=== PATIENT | female | born 1945 | race Caucasian/White ===

== ENCOUNTER 2017-04-08 03:49 | Observation (INO) | payer MEDICARE, BC, OTHER ==
[~2017-04-08] VITALS: Ht 154.9 cm; Wt 75.0 kg
[2017-04-08] VITALS (9 sets, daily range): BP systolic 132–168; BP diastolic 75–88; PULSE 68–80; RESP 16–20; TEMP 96.9–98.3; O2SAT 96–100
[~2017-04-08 03:49] MED LIST: FIORIC PO; IMDU60TA PO; LISI-360 PO
[2017-04-08] MEDS: NITROGLYCERIN 0.4 MG SL 25 TABS/BTL SL SCH ×3 (04:10→04:25)
--- NOTE | 2017-04-08 04:11 | PD ---
HPI Chief Complaint: chest pain Time Seen by Provider: 04:04 Travel History International Travel<30 days: No Contact w/Intl Traveler<30days: No Traveled to known affect area: No History of Present Illness HPI 71-year-old female presents to the emergency department for complaint of one day of retrosternal chest pain radiating to her neck and jaw. Patient's had associated nausea. Patient denies any vomiting abdominal pain or diarrhea. Patient reports mild shortness of breath. Patient's had episodes of feeling flushed with some mild diaphoresis and did not check herself for fever. Patient has chronic sinus drainage. Patient has had scant nonproductive cough. Patient does not report any urinary symptoms. Patient does take medication for blood pressure including prescription isosorbide for blood pressure management. Patient's and the care of Dr. Vásquez. Patient does not see a organizational psychologist. No prior history of CAD, angina, or LA. Patient takes no blood thinning agent. Patient is status post cholecystectomy. [facility] Past Medical History Narrative Medical Asthma migraine anxiety depression hypertension bunionectomy cholecystectomy tonsillectomy; no tobacco use; nursing notes reviewed Arthritis: No Asthma: Yes Autoimmune Disease: No Blood Disorders: No Anxiety: Yes Depression: Yes Heart Rhythm Problems: No Cancer: No Cardiac Catheterization: No Cardiovascular Problems: No High Cholesterol: No Chemotherapy: No Congestive Heart Failure: No COPD: No Cerebrovascular Accident: No Diabetes: No Diminished Hearing: No Gastrointestinal Disorders: Yes GERD: Yes Glaucoma: No Hepatitis: No Hypertension: Yes Kidney Stones: No Musculoskeletal: No Neurologic: No Reproductive: No Respiratory: No Myocardial Infarction: No Radiation Therapy: No Renal Failure: No Seizures: No Sleep Apnea: No Thyroid Disease: No Ulcer: No Menopausal: Yes Past Surgical History AICD: No Cholecystectomy: Yes Coronary Artery Bypass Graft: No Eye Surgery: Yes Genitourinary Surgery: No Pacemaker: No Tonsillectomy: Yes Other Surgery: Yes (bunionecotomy 1989) Social History Alcohol Use: No Tobacco Use: No Substance Use: No Allergies-Medications (Allergen,Severity, Reaction): Coded Allergies: Clonidine (Verified Allergy, Severe, 03/06/14) Penicillin (Verified Allergy, Unknown, RASH, 03/06/14) PT STATES POSSIBLE RASH ON CHEST 40 YEARS AGO Reported Meds & Prescriptions Reported Meds & Active Scripts Active Reported Isosorbide Mononitrate ER (Isosorbide Mononitrate) 120 Mg Baljeet 120 Mg PO DAILY Cozaar (Losartan Potassium) 50 Mg Tab 50 Mg PO DAILY Review of Systems Except as stated in HPI: all other systems reviewed are Neg General / Constitutional: No: Fever, Chills HENT: Positive: Rhinitis (chronic seasonal), No: Congestion Cardiovascular: Positive: Chest Pain or Discomfort, Diaphoresis (occasional), No: Palpitations, Edema Respiratory: Positive: Cough (mild nonproductive), No: Shortness of Breath, Wheezing Gastrointestinal: Positive: Nausea, No: Vomiting, Diarrhea, Abdominal Pain Genitourinary: No: Decreased Urinary Output, Flank Pain Musculoskeletal: No: Myalgias, Arthralgias, Edema Skin: No Rash Neurologic: No: Weakness Psychiatric: No: Anxiety Hematologic/Lymphatic: No: Lymph Node Enlargement Physical Exam Narrative GENERAL: Well-developed well-nourished female in no acute distress no respiratory distress SKIN: Warm and dry. HEAD: Normocephalic. EYES: No scleral icterus. No injection or drainage. NECK: Supple, trachea midline. No JVD or lymphadenopathy. CARDIOVASCULAR: Regular rate and rhythm without murmurs, gallops, or rubs. RESPIRATORY: Breath sounds equal bilaterally. No accessory muscle use. GASTROINTESTINAL: Abdomen soft, non-tender, nondistended. MUSCULOSKELETAL: No cyanosis, or edema. Radial and dorsalis pedis pulses 2+ to palpation bilaterally BACK: Nontender without obvious deformity. No CVA tenderness. Data Data Last Documented VS Vital Signs Date Time Temp Pulse Resp B/P Pulse Ox O2 Delivery O2 Flow Rate FiO2 04/08/17 04:37 73 20 132/75 97 04/08/17 04:31 Nasal Cannula 2 04/08/17 04:29 98.3 Orders Electrocardiogram (04/08/17 04:04) Ckmb (Isoenzyme) Profile (04/08/17 04:04) Complete Blood Count With Diff (04/08/17 04:04) Comprehensive Metabolic Panel (04/08/17 04:04) Magnesium (Mg) (04/08/17 04:04) Prothrombin Time / Inr (Pt) (04/08/17 04:04) Act Partial Throm Time (Ptt) (04/08/17 04:04) Troponin I (04/08/17 04:04) Lipase (04/08/17 04:04) Chest, Single Ap (04/08/17 04:04) Ecg Monitoring (04/08/17 04:04) Bilateral Bp Monitoring (04/08/17 04:04) Iv Access Insert/Monitor (04/08/17 04:04) Oximetry (04/08/17 04:04) Oxygen Administration (04/08/17 04:04) Aspirin Chew (Aspirin Chew) (04/08/17 04:15) Sodium Chloride 0.9% Flush (Ns Flush) (04/08/17 04:15) Nitroglycerin Sl (Nitrostat Sl) (04/08/17 04:15) Labs Laboratory Tests Test 04/08/17 04:05 White Blood Count 7.4 TH/MM3 Red Blood Count 4.27 MIL/MM3 Hemoglobin 13.2 GM/DL Hematocrit 39.0 % Mean Corpuscular Volume 91.3 FL Mean Corpuscular Hemoglobin 31.0 PG Mean Corpuscular Hemoglobin 34.0 % Concent Red Cell Distribution Width 11.9 % Platelet Count 251 TH/MM3 Mean Platelet Volume 7.8 FL Neutrophils (%) (Auto) 65.3 % Lymphocytes (%) (Auto) 23.1 % Monocytes (%) (Auto) 6.9 % Eosinophils (%) (Auto) 4.4 % Basophils (%) (Auto) 0.3 % Neutrophils # (Auto) 4.9 TH/MM3 Lymphocytes # (Auto) 1.7 TH/MM3 Monocytes # (Auto) 0.5 TH/MM3 Eosinophils # (Auto) 0.3 TH/MM3 Basophils # (Auto) 0.0 TH/MM3 CBC Comment DIFF FINAL Differential Comment Prothrombin Time 10.5 SEC Prothromb Time International 1.0 RATIO Ratio Activated Partial 27.5 SEC Thromboplast Time Sodium Level 141 MEQ/L Potassium Level 3.7 MEQ/L Chloride Level 106 MEQ/L Carbon Dioxide Level 26.4 MEQ/L Anion Gap 9 MEQ/L Blood Urea Nitrogen 11 MG/DL Creatinine 0.77 MG/DL Estimat Glomerular Filtration 74 ML/MIN Rate Random Glucose 114 MG/DL Calcium Level 8.8 MG/DL Magnesium Level 2.3 MG/DL Total Bilirubin 0.4 MG/DL Aspartate Amino Transf 15 U/L (AST/SGOT) Alanine Aminotransferase 26 U/L (ALT/SGPT) Alkaline Phosphatase 107 U/L Total Creatine Kinase 48 U/L Troponin I LESS THAN 0.02 NG/ML Total Protein 7.0 GM/DL Albumin 3.7 GM/DL Lipase 100 U/L MDM Medical Decision Making Medical Screen Exam Complete: Yes Emergency Medical Condition: Yes Medical Record Reviewed: Yes Interpretation(s) EKG normal sinus rhythm rate [address] elevation or injury pattern Q waves inferiorly lead 3 age-indeterminate cxr: wnl FINDINGS: A single view of the chest demonstrates the lungs to be symmetrically aerated without evidence of mass, infiltrate or effusion. The cardiomediastinal contours are unremarkable. Osseous structures are intact. CONCLUSION: Unremarkable single view of the chest. Saqib Bhardwaj MD on April 08, 2017 at 4:50 Board Certified Radiologist. This report was verified electronically. CBC & BMP Diagram 04/08/17 04:05 Vital Signs Date Time Temp Pulse Resp B/P Pulse Ox O2 Delivery O2 Flow Rate FiO2 04/08/17 04:37 73 20 132/75 97 04/08/17 04:31 79 20 96 Nasal Cannula 2 04/08/17 04:29 98.3 72 20 164/82 100 04/08/17 04:25 70 20 158/88 96 156/88 04/08/17 04:25 98 Nasal Cannula 2 04/08/17 04:25 74 20 158/88 98 Nasal Cannula 2 CK 70, not elevated; troponin I less than 0.02, not elevated Coagulation studies grossly normal range Differential Diagnosis Chest pain, ACS, LA, musculoskeletal pain, esophageal spasm, choledocholithiasis , pancreatitis, gastritis; also to consider aortic dissection, aneurysm Narrative Course Patient placed on quarter doper EKG performed IV access obtained specimens collected and sent for resulting; patient ordered aspirin and sublingual nitroglycerin EKG reveals no acute ST elevation or injury pattern Patient with retrosternal chest pain that it decreases after sublingual nitroglycerin along with blood pressure management. Patient be admitted to chest pain center per protocol Diagnosis Primary Impression: Chest pain Orly So MD April 08, 2017 04:11
[2017-04-08] MEDS ORDERED: SODIUM CHLORIDE 0.9% FLUSH 10 ML FLUSH IVF PRN ×2 (04:15→05:15)
[2017-04-08] MEDS ORDERED: ASPIRIN 81 MG CHEW TAB PO ONE (04:15)
[2017-04-08 04:16] LABS: AUTOMATED NEUTROPHIL # 4.9 TH/MM3 (1.8-7.7); BASOPHIL % 0.3 % (0.0-2.0); EOSINOPHIL # 0.3 TH/MM3 (0-0.4); EOSINOPHIL % 4.4 % (0.0-4.0); HEMO FLAGS DIFF FINAL; LYMPH % 23.1 % (9.0-44.0); LYMPHOCYTE # 1.7 TH/MM3 (1.0-4.8); MEAN CELL VOLUME 91.3 FL (80.0-100.0); MONO % 6.9 % (0.0-8.0); NEUT % 65.3 % (16.0-70.0); PLATELET COUNT 251 TH/MM3 (150-450); RED BLOOD COUNT 4.27 MIL/MM3 (4.00-5.30); RED CELL DISTRIBUTION WIDTH 11.9 % (11.6-17.2); WHITE BLOOD COUNT 7.4 TH/MM3 (4.0-11.0)
[2017-04-08 04:25] LABS: CHLORIDE 106 MEQ/L (98-107); POTASSIUM 3.7 MEQ/L (3.5-5.1); SODIUM (NA) 141 MEQ/L (136-145)
[2017-04-08 04:30] LABS: ANION GAP 9 MEQ/L (5-15); APTT (PATIENT) 27.5 SEC (24.3-30.1); BICARBONATE 26.4 MEQ/L (21.0-32.0); BLOOD UREA NITROGEN 11 MG/DL (7-18); MAGNESIUM 2.3 MG/DL (1.5-2.5); PROTHROMBIN TIME - PATIENT 10.5 SEC (9.8-11.6)
[2017-04-08 04:32] LABS: ALT (GPT) 26 U/L (10-53); AST (GOT) 15 U/L (15-37)
[2017-04-08 04:33] LABS: GLOMERULAR FILTRATION RATE 74 ML/MIN (>89)
[2017-04-08 04:34] LABS: TOTAL BILIRUBIN ADULT 0.4 MG/DL (0.2-1.0)
[2017-04-08 04:35] LABS: ALKALINE PHOSPHATASE 107 U/L (45-117)
[2017-04-08 04:43] LABS: CREATINE KINASE 48 U/L (26-192)
[2017-04-08] MEDS ORDERED: ISOS120T PO (04:45)
[2017-04-08] MEDS ORDERED: COZA50TA PO (04:45)
--- NOTE | 2017-04-08 04:51 | RADHPO ---
EXAM DATE/TIME: 04/08/2017 04:15 [facility] COMPARISON: CHEST SINGLE AP, April 16, 2013, 20:31. INDICATIONS : Chest pressure, nausea for 24 hours MEDICAL HISTORY : None. SURGICAL HISTORY : None. ENCOUNTER: Initial ACUITY: 1 day PAIN SCORE: 0/10 LOCATION: Bilateral chest FINDINGS: A single view of the chest demonstrates the lungs to be symmetrically aerated without evidence of mas s, infiltrate or effusion. The cardiomediastinal contours are unremarkable. Osseous structures are intact. CONCLUSION: Unremarkable single view of the chest. Saqib Bhardwaj MD on April 08, 2017 at 4:50 Board Certified Radiologist. This report was verified electronically.
[2017-04-08] MEDS ORDERED: SODIUM CHLORIDE 0.9% FLUSH 10 ML FLUSH IV FLUSH PRN (05:00)
[2017-04-08 07:34] LABS: CREATINE KINASE 37 U/L (26-192)
--- NOTE | 2017-04-08 08:17 | HHI.HP ---
[facility] Service [facility] Primary Care Physician Osmin Vásquez M.D. Admission Diagnosis chest pain Diagnoses: (1) Chest pain Diagnosis: Principal (2) Hypertension Diagnosis: Secondary (3) GERD (gastroesophageal reflux disease) Diagnosis: Secondary Travel History International Travel<30 Days: No Contact w/Intl Traveler <30 Da: No Traveled to Known Affected Are: No History of Present Illness Written by Milton Bains, acting as scribe for Dr. Toscano on 04/08/17 at 08: 12. 71-year-old female with known history of hypertension, gastroesophageal reflux, seasonal allergies who presented to hospital because of chest discomfort, nausea, lightheadedness dizziness. Patient states that over symptoms started yesterday morning when she woke up. She indicates that she had lightheaded dizziness which she contributed it to her seasonal allergies because she also had a sinus headache. The patient started developing nausea upon waking as well. She had increased belching and flatulence. However throughout the day she started developing a heaviness in her chest which she felt as if it can be compared to having a small puppy on her chest. There was some pressure sensation radiating up into her neck. Patient indicates that when she got up and started her so she thought that she may have become diaphoretic. The pain did not worsen when she was exerting herself. She denied any shortness of breath, dyspnea. Patient indicates that the discomfort was persistent throughout the day. She laid down to go to sleep last night approximately 10 PM and the pain was not improved so she decided come to the hospital for evaluation. Patient was evaluated by emergency room physician and recommended observation chest pain center. Review of Systems Constitutional: COMPLAINS OF: Diaphoretic episodes, Dizziness, DENIES: Fatigue , Fever, Weight gain, Weight loss, Chills, Change in appetite, Night Sweats Eyes: DENIES: Blurred vision, Diplopia, Eye inflammation, Eye pain, Vision loss , Double Vision Ears, nose, mouth, throat: DENIES: Vertigo, Nasal discharge, Throat pain, Ear Pain, Running Nose, Sinus Pain Respiratory: DENIES: Apneas, Cough, Snoring, Wheezing, Hemoptysis, Sputum production, Shortness of breath Cardiovascular: COMPLAINS OF: Chest pain, DENIES: Palpitations, Syncope, Dyspnea on Exertion, Lower Extremity Edema, Orthopnea Gastrointestinal: COMPLAINS OF: Nausea, DENIES: Abdominal pain, Black stools, Bloody stools, Constipation, Diarrhea, Vomiting, Difficulty Swallowing, Anorexia Neurologic: DENIES: Abnormal gait, Headache, Localized weakness, Paresthesias, Seizures, Speech Problems, Tremor, Poor Balance Past Family Social History Past Medical History Hypertension Gastroesophageal reflux Anxiety/depression OA Past Surgical History Cataract surgery Tonsillectomy Bunionectomy Cardiac catheterization Cholecystectomy Reported Medications Reported Meds & Active Scripts Active Reported Isosorbide Mononitrate ER (Isosorbide Mononitrate) 120 Mg Baljeet 120 Mg PO DAILY Cozaar (Losartan Potassium) 50 Mg Tab 50 Mg PO DAILY Allergies: Coded Allergies: Clonidine (Verified Allergy, Severe, 03/06/14) Penicillin (Verified Allergy, Unknown, RASH, 03/06/14) PT STATES POSSIBLE RASH ON CHEST 40 YEARS AGO Family History Reviewed is significant for heart disease. Father she believes had a myocardial infarction, sister has heart disease. Father from lung cancer, mother from uterine cancer Social History Patient denies any tobacco, alcohol or illicit drugs Physical Exam Vital Signs Vital Signs Date Time Temp Pulse Resp B/P Pulse Ox O2 Delivery O2 Flow Rate FiO2 04/08/17 07:21 69 16 04/08/17 06:08 80 20 168/87 99 Nasal Cannula 2 04/08/17 05:23 68 20 155/79 99 04/08/17 05:04 97 Nasal Cannula 2.00 04/08/17 04:37 73 20 132/75 97 04/08/17 04:31 79 20 96 Nasal Cannula 2 04/08/17 04:29 98.3 72 20 164/82 100 04/08/17 04:25 70 20 158/88 96 156/88 04/08/17 04:25 98 Nasal Cannula 2 04/08/17 04:25 74 20 158/88 98 Nasal Cannula 2 Physical Exam GENERAL: Well-developed, well-nourished, in no acute distress. alert and orientated HEENT: Head is normocephalic without any lesions or masses noted. Facial features are symmetric. Eyes: Pupils equal round reactive to light. Extraocular muscles are intact. Conjunctivae were clear. Oropharyngeal: Pharynx without any erythema edema. Tongue is midline without deviation. Buccal mucosa is moist without any masses or lesions NECK: Supple without any masses. Trachea midline no deviation. No JVD, no bruits are appreciated CARDIAC: Regular rhythm, regular rate. S1/S2 are heard. No murmurs gallops or rubs. No chest wall tenderness. LUNGS: Clear to auscultation bilaterally. No wheeze, rhonchi or rales. No use of accessory muscles on inspiration or expiration. ABDOMEN: Soft, nontender. Nondistended. Bowel sounds heard in all 4 quadrants. No organomegaly or masses. Negative rebound, negative guarding EXTREMITIES: No edema, pulses are equal bilaterally. No cyanosis or clubbing NEUROLOGY: Mood and affect appear appropriate. Cranial nerves II through XII grossly intact. Muscle strength 5/5 in upper and lower extremities bilaterally. Deep tendon reflexes are 2+ in upper and lower extremities bilaterally. Laboratory Laboratory Tests Test 04/08/17 04/08/17 04:05 07:11 White Blood Count 7.4 Red Blood Count 4.27 Hemoglobin 13.2 Hematocrit 39.0 Mean Corpuscular Volume 91.3 Mean Corpuscular Hemoglobin 31.0 Mean Corpuscular Hemoglobin 34.0 Concent Red Cell Distribution Width 11.9 Platelet Count 251 Mean Platelet Volume 7.8 Neutrophils (%) (Auto) 65.3 Lymphocytes (%) (Auto) 23.1 Monocytes (%) (Auto) 6.9 Eosinophils (%) (Auto) 4.4 Basophils (%) (Auto) 0.3 Neutrophils # (Auto) 4.9 Lymphocytes # (Auto) 1.7 Monocytes # (Auto) 0.5 Eosinophils # (Auto) 0.3 Basophils # (Auto) 0.0 CBC Comment DIFF FINAL Differential Comment Prothrombin Time 10.5 Prothromb Time International 1.0 Ratio Activated Partial 27.5 Thromboplast Time Sodium Level 141 Potassium Level 3.7 Chloride Level 106 Carbon Dioxide Level 26.4 Anion Gap 9 Blood Urea Nitrogen 11 Creatinine 0.77 Estimat Glomerular Filtration 74 Rate Random Glucose 114 Calcium Level 8.8 Magnesium Level 2.3 Total Bilirubin 0.4 Aspartate Amino Transf 15 (AST/SGOT) Alanine Aminotransferase 26 (ALT/SGPT) Alkaline Phosphatase 107 Total Creatine Kinase 48 37 Troponin I LESS THAN 0.02 LESS THAN 0.02 Total Protein 7.0 Albumin 3.7 Lipase 100 Result Diagram: 04/08/175 04/08/17404 Imaging Last Impressions Chest X-Ray 04/08/17403 Signed Impressions: Service Date/Time: Saturday, April 08, 2017 04:15 - CONCLUSION: Unremarkable single view of the chest. Saqib Bhardwaj MD Assessment and Plan Assessment and Plan Chest pain Patient with increased risk factors to include age, hypertension, family history We will continue to rule out for any acute coronary event with serial cardiac enzymes and serial EKGs We'll pursue nuclear stress test rule out any underlying ischemia if patient ruled out for acute coronary event Patient was given aspirin emergency department, continue long-acting nitrates Monitor telemetry - check lipid profile and HgbA1c Hypertension Blood pressure slightly elevated Continue home medications DVT prevention Low risk, early ambulation Discharge disposition Discharge home in stable addition Activity: Ad riya. Diet: Healthy heart diet Medications per medication reconciliation Follow-up with primary medical doctor one week Discussed Condition With This note was transcribed by scribdonnie Bains. I, Dr. Brian Toscano personally performed the history, physical exam, and medical decision making; and confirmed the accuracy of the information in the transcribed note. Authenticated by Dr. Brian Toscano on 04/08/17 at 10:43. Problem Qualifiers (1) Chest pain: Qualified Code: R07.9 - Chest pain, unspecified type (2) Hypertension: Qualified Code: I15.9 - Secondary hypertension (3) GERD (gastroesophageal reflux disease): Qualified Code: K21.9 - Gastroesophageal reflux disease, esophagitis presence not specified Milton Bains April 08, 2017 08:17 Brian Toscano DO April 08, 2017 10:44
[2017-04-08] MEDS ORDERED: LOSARTAN 50 MG TAB PO SCH ×2 (09:00→21:00)
[2017-04-08] MEDS ORDERED: SODIUM CHLORIDE 0.9% FLUSH 10 ML FLUSH SCH (09:00)
[2017-04-08] MEDS ORDERED: SODIUM CHLORIDE 0.9% FLUSH 10 ML FLUSH IV FLUSH SCH (09:00)
[2017-04-08] MEDS ORDERED: ISOSORBIDE MONONITRATE 60 MG TAB PO SCH (09:00)
[2017-04-08 10:43] LABS: CREATINE KINASE 34 U/L (26-192)
[2017-04-08] MEDS ORDERED: REGADENOSON INJ 0.4 MG/5 ML SYR IV ONE (12:32)
[2017-04-08 13:21] LABS: HDL CHOLESTEROL 69.4 MG/DL (40.0-60.0); LDL CHOLESTEROL 157 MG/DL (0-99)
[2017-04-08 13:38] LABS: HEMOGLOBIN A1a 1.3 %; HEMOGLOBIN A1b 0.8 %; HEMOGLOBIN Ao 85.8 %; HEMOGLOBIN LA1C 1.9 %; HEMOGLOBIN P3 3.3 %
--- NOTE | 2017-04-08 14:22 | RADHPO ---
EXAM DATE/TIME: 04/08/2017 12:32 [facility] COMPARISON: MYOCARDIAL PERF PHARM SPECT, GATED W/EF, April 17, 2013, 11:02. INDICATIONS : Retrosternal chest pain radiating to the neck and jaw with nausea for 1 day. Angina. DOSE: 26.3 mCi Tc99m Myoview at stress. 8.7 mCi Tc99m Myoview at rest. 0.4 mg Lexiscan STRESS SYMPTOMS: Dyspnea and chest tightness. EJECTION FRACTION: 66% MEDICAL HISTORY : Hypercholesterolemia. Hypertension. SURGICAL HISTORY : Tonsillectomy. Cholecystectomy. ENCOUNTER: Initial ACUITY: 1 day PAIN SCALE: 6/10 LOCATION: Retrosternal chest TECHNIQUE: The patient underwent pharmacologic stress with infusion of prescribed dose. Continuous ECG tracing was monitored during stress. Gated SPECT imaging was performed after stress and conventional SPECT i maging was performed at rest. The examination was performed on a SPECT/CT scanner, both attenuation and non-corrected datasets were reviewed. FINDINGS: DISTRIBUTION: The maximum perfused segment at stress is in the anterior wall. PERFUSION STUDY: The pattern of perfusion at stress is within normal limits. GATED STUDY: There is intact wall motion and thickening without hypokinetic or dyskinetic segments. CONCLUSION: 1. No significant reversibility to suggest ischemia. 2. Normal wall motion with ejection fraction 66%. 3. No significant change since 2012 examination. RISK CATEGORY: Low (<1% Annual Mortality Rate) Fili Mcgee MD on April 08, 2017 at 14:16 Board Certified Radiologist. This report was verified electronically.
--- NOTE | 2017-04-08 14:24 | HHI.DCPOC ---
Discharge Care Plan Diagnosis: (1) Chest pain Goals to Promote Your Health * To prevent worsening of your condition and complications * To maintain your health at the optimal level Directions to Meet Your Goals Take your medications as prescribed Follow your dietary instruction Follow activity as directed Keep your appointments as scheduled Take your immunizations and boosters as scheduled If your symptoms worsen call your PCP, if no PCP go to Urgent Care Center or Emergency Room Smoking is Dangerous to Your Health. Avoid second hand smoke Call the 24-hour hour crisis hotline for domestic abuse at Milton Bains April 08, 2017 14:24
--- NOTE | 2017-04-09 14:26 | TR ---
Date Performed: 04/08/2017 Time Performed: 13:00:52 DOCTOR: Leroy Christy DRUG LIST: CLINICAL HISTORY: REASON FOR TEST: Chest pain REASON FOR ENDING: OBSERVATION: CONCLUSION: Lexiscan stress test was performed under standard four minute protocol. Radionuclid e was injected one minute prior to ending the test. No electrocardiographic abormalities were present to suggest ischemia. Nuclear imaging and interpretation are pending. COMMENTS:
--- NOTE | 2017-04-09 14:29 | EKG ---
Date Performed: 04/08/2017 Time Performed: 09:49:46 PTAGE: 71 years EKG: Sinus rhythm . Left axis deviation Lateral T wave changes are nonspecific Borderline ECG PREVIOUS TRACING : 04/08/2017 06.50 Since previous tracing, no significant change noted DOCTOR: Leroy Christy Interpretating Date/Time 04/09/2017 14:28:52
--- NOTE | 2017-04-09 14:31 | EKG ---
Date Performed: 04/08/2017 Time Performed: 03:54:48 PTAGE: 71 years EKG: Sinus rhythm . Possible left anterior fascicular block ST junctional depression is nonspecific Borderline ECG PREVIOUS TRACING : 05/01/2013 01.24 Since previous tracing, no significant change noted DOCTOR: Leroy Christy Interpretating Date/Time 04/09/2017 14:30:08
--- NOTE | 2017-04-09 14:31 | EKG ---
Date Performed: 04/08/2017 Time Performed: 06:50:40 PTAGE: 71 years EKG: Sinus rhythm Leftward axis Anterolateral ST-T changes are nonspecific Borderline ECG PREVIOUS TRACING : 04/08/2017 03.54 Since previous tracing, no significant change noted DOCTOR: Leroy Christy Interpretating Date/Time 04/09/2017 14:29:36
== END 2017-04-08 14:55 | disposition home or self-care (01) ==
LOC: PHED 03:49 → PHEDA 05:02 → PH3B 08:06
PROVIDERS: ADMIT Hospitalist; ATTEND Hospitalist
DX: R07.9 Chest pain, unspecified (principal); I10 Essential (primary) hypertension; K21.9 Gastro-esophageal reflux disease without esophagitis; R61 Generalized hyperhidrosis; R94.31 Abnormal electrocardiogram [ECG] [EKG]
CPT/HCPCS: 71010; 78452; 80053; 80061; 82550; 83036; 83690; 83735; 84484; 85025; 85610; 85730; 93005; 93017; 99285; A9502; G0378; J2785